=== PATIENT | male | born 1995 | race Caucasian/White ===

== ENCOUNTER 2016-09-22 19:02 | Emergency (ER) | payer OTHER ==
[~2016-09-22] VITALS: Ht 165.1 cm; Wt 65.0 kg
[2016-09-22 19:03] VITALS: BP 155/98; PULSE 98; RESP 15; TEMP 98.2; O2SAT 98
== END 2016-09-22 22:10 | disposition left against medical advice (07) ==
LOC: NED 19:02
DX: R10.9 Unspecified abdominal pain (principal); Z53.21 Procedure and treatment not carried out due to patient leaving prior to being seen by health care provider
CPT/HCPCS: 99281